=== PATIENT | female | born 2000 | race Caucasian/White ===

== ENCOUNTER 2019-10-21 10:25 | Emergency (ER) | payer BC, OTHER ==
--- NOTE | 2019-10-21 11:29 | XR ---
EXAMINATION TYPE: XR chest 2V DATE OF EXAM: 10/21/2019 COMPARISON: 09/29/2012 TECHNIQUE: PA and lateral views submitted. HISTORY: Cough FINDINGS: There are bilateral perihilar areas of infiltrate. Peripheral left upper lobe area of consolidation n oted. No pleural effusion or pneumothorax. Heart size normal. No overt failure. IMPRESSION: 1. Bilateral perihilar infiltrate correlate for pneumonia.
[2019-10-21] MEDS ORDERED: KETOROLAC 30 MG/ML 1 ML VIAL IM STA (11:33)
[2019-10-21] MEDS ORDERED: DEXAMETHASONE SOD PHOSPHATE 10 MG/ML 1 ML VIAL IM STA (11:33)
[2019-10-21] MEDS ORDERED: AMOXICILLIN 875 MG TAB PO STA (11:33)
[2019-10-21] MEDS ORDERED: IPRATROPIUM-ALBUTEROL 3 ML NEB INHALATION STA (11:34)
[2019-10-21] MEDS ORDERED: AZITHROMYCIN 500 MG TAB PO STA (11:34)
--- NOTE | 2019-10-21 11:37 | ED ---
URI HPI - General Chief Complaint: Upper Respiratory Infection Stated Complaint: Sob/coughing up blood/ear pain Time Seen by Provider: 10/21/19 11:07 Source: patient Mode of arrival: ambulatory Limitations: no limitations - History of Present Illness Initial Comments: 19-year-old female patient presents to the emergency department today for evaluation of cough, shortness of breath, and right ear pain. Patient states that she's been sick for the last week with symptoms. States that she is experiencing sore throat, clear nasal drainage with this. She does have a history of asthma states that she's been having difficulty with breathing. She is reporting persistent painful cough. States that she has been using her albuterol inhaler without relief. She is reporting right ear pain, denies drainage. She reports fever for the first two days of her illness. States she has been taking ibuprofen with little relief of her pain. Patient denies any recent rash, abdominal pain, nausea, vomiting, diarrhea, constipation, back pain, numbness, tingling, dizziness, weakness, hematuria, dysuria, urinary urgency, urinary frequency, headache, visual changes, or any other complaints. - Related Data Home Medications Medication Instructions Recorded Confirmed Cetirizine HCl [Zyrtec] 10 mg PO DAILY PRN 12/01/14 12/01/14 FLUoxetine HCL [PROzac] 60 mg PO DAILY 12/01/14 12/01/14 Generess 1 tab PO DAILY 12/01/14 12/01/14 Montelukast [Singulair] 10 mg PO DAILY 12/01/14 12/01/14 lamoTRIgine [LaMICtal] 25 mg PO DAILY 12/01/14 12/01/14 traZODone HCL [Desyrel] 50 mg PO DAILY 12/01/14 12/01/14 Previous Rx's Medication Instructions Recorded Azithromycin 250 mg PO DAILY 4 Days #4 tab 10/21/19 predniSONE 50 mg PO DAILY #5 tablet 10/21/19 Allergies Allergy/AdvReac Type Severity Reaction Status Date / Time morphine Allergy Cough Verified 10/21/19 10:52 Sulfa (Sulfonamide Allergy Rash/Hives Verified 10/21/19 10:52 Antibiotics) sulfamethoxazole Allergy Anaphylaxis Verified 10/21/19 10:52 [From Bactrim] trimethoprim [From Bactrim] Allergy Anaphylaxis Verified 10/21/19 10:52 Review of Systems ROS Statement: Those systems with pertinent positive or pertinent negative responses have been documented in the HPI. ROS Other: All systems not noted in ROS Statement are negative. Past Medical History Past Medical History: No Reported History Additional Past Medical History / Comment(s): cardiac arrest History of Any Multi-Drug Resistant Organisms: None Reported Past Surgical History: Cholecystectomy Past Psychological History: Anxiety, Depression Smoking Status: Former smoker Past Alcohol Use History: Occasional Past Drug Use History: Marijuana, Prescription Drug Abuse General Exam Limitations: no limitations General appearance: alert, in no apparent distress, other (Physical well- developed, well-nourished adult female patient in no acute distress. Vital signs upon presentation are temperature 97.9F, pulse 97, respirations 18, blood pressure 129/89, pulse ox 98% on room air.) Eye exam: Present: normal appearance, PERRL, EOMI. Absent: scleral icterus, conjunctival injection, periorbital swelling ENT exam: Present: mucous membranes moist. Absent: normal oropharynx (Pharyngeal erythema), TM's normal bilaterally (Right tympanic membrane bulging and erythema) Neck exam: Present: normal inspection, lymphadenopathy (Anterior cervical lymphadenopathy). Absent: tenderness, meningismus Respiratory exam: Present: wheezes (Expiratory wheezing in the posterior lung emery). Absent: normal lung sounds bilaterally, respiratory distress, rales, rhonchi, stridor Cardiovascular Exam: Present: regular rate, normal rhythm, normal heart sounds. Absent: systolic murmur, diastolic murmur, rubs, gallop, clicks GI/Abdominal exam: Present: soft, normal bowel sounds. Absent: distended, tenderness, guarding, rebound, rigid Neurological exam: Present: alert, oriented X3, CN II-XII intact Psychiatric exam: Present: normal affect, normal mood Skin exam: Present: warm, dry, intact, normal color. Absent: rash Course Vital Signs 10/21/19 10/21/19 10/21/19 10:52 12:24 12:32 Temperature 97.9 F Pulse Rate 97 88 96 Respiratory 18 Rate Blood Pressure 129/89 O2 Sat by Pulse 98 Oximetry 10/21/19 13:09 Temperature 98.1 F Pulse Rate 75 Respiratory 17 Rate Blood Pressure 125/76 O2 Sat by Pulse 98 Oximetry Medical Decision Making - Medical Decision Making 19-year-old female patient presents to the emergency department today for evaluation of cough, shortness of breath, and ear pain. Physical examination reveals bulging, erythematous, right tympanic membrane which is consistent with otitis media. Lungs there is coarse expiratory wheezing in the posterior lung emery. Chest x-ray was obtained and showed bilateral pneumonia. Influenza negative. Shows have otitis media. We'll treat with azithromycin to cover for both ear infection and pneumonia. Patient is instructed to follow-up with her primary care physician for recheck in 1-2 days. Return parameters were discussed in detail. Patient verbalizes understanding and agree with this plan. - Lab Data Lab Results 10/21/19 Range/Units 10:59 Influenza Type A RNA Not Detected (Not Detectd) Influenza Type B (PCR) Not Detected (Not Detectd) - Radiology Data Radiology results: report reviewed, image reviewed Two-view x-ray of the chest is obtained. Report is reviewed in its entirety. Impression by Dr. Pérez shows bilateral perihilar infiltrate correlate for pneumonia. Disposition Clinical Impression: Right otitis media, Pneumonia Disposition: HOME SELF-CARE Condition: Good Instructions (If sedation given, give patient instructions): Ear Infection (ED), Pneumonia (ED) Additional Instructions: Take medications as directed. Complete antibiotic and steroid prescription in full. Take Tylenol and Motrin for pain control. Follow up with your primary care physician for recheck in 1-2 days. Return to the emergency department immediately for any new, worsening, or concerning symptoms. Prescriptions: Azithromycin 250 mg PO DAILY 4 Days #4 tab predniSONE 50 mg PO DAILY #5 tablet Is patient prescribed a controlled substance at d/c from ED?: No Referrals: Coral Billingsley MD [Primary Care Provider] - 1-2 days Time of Disposition: 12:50
[2019-10-21 13:10] VITALS: BP 125/76; PULSE 75; RESP 17; TEMP 98.1
== END 2019-10-21 13:09 | disposition home or self-care (01) ==
LOC: EC 10:25
DX: J18.9 Pneumonia, unspecified organism (principal); H66.91 Otitis media, unspecified, right ear; F41.9 Anxiety disorder, unspecified; F32.9 Major depressive disorder, single episode, unspecified; Z79.899 Other long term (current) drug therapy; Z88.1 Allergy status to other antibiotic agents; Z88.2 Allergy status to sulfonamides; Z88.5 Allergy status to narcotic agent; Z87.891 Personal history of nicotine dependence; Z86.74 Personal history of sudden cardiac arrest
CPT/HCPCS: 94640; 87502; 71046; 99285; 96372 ×2; J1100; J1885

== ENCOUNTER 2020-06-07 00:19 | Emergency (ER) | payer OTHER ==
[2020-06-07 00:30] LABS: Glucose,Whole Blood 91 mg/dL (75-99)
--- NOTE | 2020-06-07 00:37 | ED ---
Chest Pain HPI - General Stated Complaint: Chest Pain, 17 wks Time Seen by Provider: 06/07/20 00:25 Source: patient Mode of arrival: wheelchair Limitations: no limitations - History of Present Illness Initial Comments: Carmen is a 20 yo female who presents to the ER today for evaluation of multiple episodes of near syncope and some left sided upper chest pain. Patient reports that about a week ago she had an episode in which she woke up, she hadnt eaten for hours and when she got out of bed she became lightheaded, her vision darkened and she nearly passed out. At that time she sat down and ate and felt much better. A similar event occured again a couple of days later and again resolved after resting in a sitting position. Patient states that today she again became lightheaded upon standing, her vision darkened, she had ringing in her ears and her chest felt tight. She states that her sister and mother both suffer from POTS and have episodes of low blood pressure for which they're advised to have a salty Murphy drink fluids. Patient reports that when she had an episode she ate chips and had Gatorade with minimal relief. Patient reports she's had an uneventful she's been healthy eating and drinking well no vomiting no hyperemesis. - Related Data Home Medications Medication Instructions Recorded Confirmed Cetirizine HCl [Zyrtec] 10 mg PO DAILY PRN 12/01/14 12/01/14 FLUoxetine HCL [PROzac] 60 mg PO DAILY 12/01/14 12/01/14 Generess 1 tab PO DAILY 12/01/14 12/01/14 Montelukast [Singulair] 10 mg PO DAILY 12/01/14 12/01/14 lamoTRIgine [LaMICtal] 25 mg PO DAILY 12/01/14 12/01/14 traZODone HCL [Desyrel] 50 mg PO DAILY 12/01/14 12/01/14 Previous Rx's Medication Instructions Recorded Azithromycin 250 mg PO DAILY 4 Days #4 tab 10/21/19 predniSONE 50 mg PO DAILY #5 tablet 10/21/19 Allergies Allergy/AdvReac Type Severity Reaction Status Date / Time morphine Allergy Cough Verified 06/07/20 00:32 Sulfa (Sulfonamide Allergy Rash/Hives Verified 06/07/20 00:32 Antibiotics) sulfamethoxazole Allergy Anaphylaxis Verified 06/07/20 00:32 [From Bactrim] trimethoprim [From Bactrim] Allergy Anaphylaxis Verified 06/07/20 00:32 Review of Systems ROS Statement: Those systems with pertinent positive or pertinent negative responses have been documented in the HPI. ROS Other: All systems not noted in ROS Statement are negative. EKG Findings - EKG Comments: EKG Findings:: EKG was obtained due to complaint of chest pain, EKG was obtained at oh 41, rate is 77 rhythm is sinus with sinus arrhythmia, normal axis, normal intervals, NH 146, QRS 80, QTC 457 there are no acute ST elevations or depressions no evidence of acute ischemia or infarction Past Medical History Past Medical History: No Reported History Additional Past Medical History / Comment(s): cardiac arrest History of Any Multi-Drug Resistant Organisms: None Reported Past Surgical History: Cholecystectomy Past Psychological History: Anxiety, Depression Smoking Status: Former smoker Past Alcohol Use History: Occasional Past Drug Use History: Marijuana, Prescription Drug Abuse General Exam - General Exam Comments Initial Comments: Physical Exam GENERAL: Patient is well-developed and well-nourished. Patient is nontoxic and well- hydrated and is in no distress. HENT: Normocephalic, Atraumatic. EYES: PERRL, EOMI PULMONARY: Unlabored respirations. No audible rales rhonchi or wheezing was noted. CARDIOVASCULAR: There is a regular rate and rhythm without any murmurs gallops or rubs. ABDOMEN: Soft and nontender with normal bowel sounds. Gravid abdomen palpable to just below the umbilicus SKIN: Skin is clear with no lesions or rashes and otherwise unremarkable. : Deferred NEUROLOGIC: Patient is alert and oriented x3. Moving all extremities spontaneously MUSCULOSKELETAL: Normal extremities with adequate strength and full range of motion. No lower extremity swelling or edema. No calf tenderness. PSYCHIATRIC: Normal psychiatric evaluation. Limitations: no limitations Course Vital Signs 06/07/20 00:22 Temperature 98.3 F Pulse Rate 89 Respiratory 16 Rate Blood Pressure 114/74 O2 Sat by Pulse 98 Oximetry Chest Pain MDM - MDM The patient was seen and evaluated, history is obtained from patient Patient seems to be having episodes of near-syncope which have been worse during her Labs and EKG were obtained and were relatively unremarkable, TSH was mildly elevated Bedside ultrasound report revealed a very active fetus with a heart rate in the 140s Patient received a liter fluid she remained asymptomatic while in the hospital as comfortable with plan for discharge home and outpatient follow-up advised that she needs notify her straight edger on Monday of her abnormal labs Disposition Clinical Impression: Atypical chest pain, Hyperthyroidism affecting in second trimester, Orthostatic lightheadedness Disposition: HOME SELF-CARE Condition: Stable Instructions (If sedation given, give patient instructions): Near Syncope (ED) Is patient prescribed a controlled substance at d/c from ED?: No Referrals: Coral Billingsley MD [Primary Care Provider] - 1-2 days
[2020-06-07 01:28] LABS: Basophils % (A) 0 %; Eosinophils # (A) 0.2 k/uL (0-0.7); Eosinophils % (A) 2 %; HCT 39.5 % (34.0-46.0); HGB 13.1 gm/dL (11.4-16.0); Lymphocytes % (A) 21 %; MCH 27.2 pg (25.0-35.0); MCHC 33.2 g/dL (31.0-37.0); Mean Platelet Volume 7.4; Monocytes # (A) 0.6 k/uL (0-1.0); Monocytes % (A) 4 %; Neutrophils # (A) 10.4 k/uL (1.3-7.7); Neutrophils % (A) 72 %; Platelet Count 287 k/uL (150-450); RBC 4.83 m/uL (3.80-5.40); RDW 13.7 % (11.5-15.5); WBC 14.4 k/uL (3.8-10.6)
[2020-06-07 01:32] LABS: Appearance,Urine Slightly Cloudy (Clear); Bilirubin,Urine Negative (Negative); Color,Urine Yellow; Glucose,Urine (UA) Negative (Negative); Ketones,Urine Negative (Negative); Protein,Urine Negative (Negative); Specific Gravity,Urine 1.005 (1.001-1.035)
[2020-06-07 01:33] LABS: Blood,Urine Negative (Negative); Leukocyte Esterase,Urine Negative (Negative); Nitrite,Urine Negative (Negative); Urobilinogen,Urine <2.0 mg/dL (<2.0)
--- NOTE | 2020-06-07 01:33 | XR ---
EXAMINATION TYPE: XR chest 2V DATE OF EXAM: 06/07/2020 COMPARISON: 10/21/2019 HISTORY: Chest pain TECHNIQUE: 2 views FINDINGS: Heart and mediastinum are normal. Lungs are clear. Diaphragm is normal. Bony thorax appears normal. Pulmonary vascularity is normal. IMPRESSION: Normal chest. There is clearing of the pulmonary infiltrates compared to old exam.
[2020-06-07 01:37] LABS: INR 0.9 (<1.2); Partial Thromboplastin Time 24.4 sec (22.0-30.0); Prothrombin Time 9.3 sec (9.0-12.0)
[2020-06-07 01:39] LABS: ALT 14 U/L (4-34); AST 24 U/L (14-36); African American GFR (CKD) >90 (>60 ml/min/1.73 sqM); Albumin 4.1 g/dL (3.5-5.0); Alkaline Phosphatase 80 U/L (38-126); Anion Gap 11 mmol/L; Blood Urea Nitrogen 5 mg/dL (7-17); Calcium 9.4 mg/dL (8.4-10.2); Carbon Dioxide 24 mmol/L (22-30); Chloride 102 mmol/L (98-107); Glucose 92 mg/dL (74-99); Magnesium 1.9 mg/dL (1.6-2.3); Non-African American GFR(CKD) >90 (>60 ml/min/1.73 sqM); Potassium 3.9 mmol/L (3.5-5.1); Sodium 137 mmol/L (137-145); Total Bilirubin 0.3 mg/dL (0.2-1.3); Total Protein 7.6 g/dL (6.3-8.2)
[2020-06-07] MEDS ORDERED: SODIUM CHLORIDE 0.9% 1,000 ML IV ONE (01:46)
[2020-06-07 02:37] LABS: T4, Free (Free Thyroxine) 1.01 ng/dL (0.78-2.19)
[2020-06-07 02:57] VITALS: BP 121/86; PULSE 74; RESP 18; TEMP 98.1
== END 2020-06-07 02:57 | disposition home or self-care (01) ==
LOC: EC 00:19
DX: O99.282 Endocrine, nutritional and metabolic diseases complicating pregnancy, second trimester (principal); E05.90 Thyrotoxicosis, unspecified without thyrotoxic crisis or storm; O99.342 Other mental disorders complicating pregnancy, second trimester; F41.9 Anxiety disorder, unspecified; F32.9 Major depressive disorder, single episode, unspecified; O26.892 Other specified pregnancy related conditions, second trimester; R42 Dizziness and giddiness; R07.89 Other chest pain; Z3A.17 17 weeks gestation of pregnancy; Z79.899 Other long term (current) drug therapy; Z79.3 Long term (current) use of hormonal contraceptives; Z88.2 Allergy status to sulfonamides; Z88.5 Allergy status to narcotic agent; Z88.1 Allergy status to other antibiotic agents; Z87.891 Personal history of nicotine dependence; Z86.74 Personal history of sudden cardiac arrest
CPT/HCPCS: 36415; 71046; 80053; 81001; 83735; 83880; 84439; 84443; 84484; 85025; 85610; 85730; 93005; 96360; 99285

== ENCOUNTER 2020-06-14 00:04 | Emergency (ER) | payer OTHER ==
[2020-06-14 00:11] VITALS: RESP 18; TEMP 98.1
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
[2020-06-14 00:59] VITALS: BP 104/63; PULSE 71
== END 2020-06-14 00:58 | disposition home or self-care (01) ==
LOC: EC 00:04
DX: Z04.1 Encounter for examination and observation following transport accident (principal); O99.342 Other mental disorders complicating pregnancy, second trimester; F41.9 Anxiety disorder, unspecified; F32.9 Major depressive disorder, single episode, unspecified; Z79.899 Other long term (current) drug therapy; Z79.3 Long term (current) use of hormonal contraceptives; Z88.2 Allergy status to sulfonamides; Z88.1 Allergy status to other antibiotic agents; Z88.5 Allergy status to narcotic agent; Z87.891 Personal history of nicotine dependence; Z3A.17 17 weeks gestation of pregnancy
CPT/HCPCS: 99284

== ENCOUNTER 2020-10-14 18:27 | Outpatient (CLI) | payer OTHER ==
[2020-10-14 19:02] LABS: Appearance,Urine Cloudy (Clear); Bilirubin,Urine Negative (Negative); Blood,Urine Negative (Negative); Color,Urine Yellow; Glucose,Urine (UA) Negative (Negative); Ketones,Urine 2+ (Negative); Leukocyte Esterase,Urine Large (Negative); Mucus,Urine Many /hpf; Nitrite,Urine Negative (Negative); Protein,Urine Trace (Negative); RBC,Urine 4 /hpf (0-5); Specific Gravity,Urine 1.029 (1.001-1.035); Squamous Epithelial Cell,Urine 33 /hpf (0-4); Urobilinogen,Urine <2.0 mg/dL (<2.0); WBC,Urine 14 /hpf (0-5)
[2020-10-14 19:44] VITALS: BP 135/80; PULSE 93; RESP 16; TEMP 97.9
[2020-10-14] MEDS: LACTATED RINGERS 1,000 ML IV SCH ×2 (20:20→21:20)
--- NOTE | 2020-12-05 10:22 | P.MSEPDOC ---
Presenting Problems - Arrival Data Date of Arrival on Unit: 10/14/20 Time of Arrival on Unit: 18:27 Mode of Transport: Wheelchair - Complaint OB-Reason for Admission/Chief Complaint: Possible Onset of Labor, Pain Medical History - Information : 1 Para: 0 Term: 0 : 0 Abortions: Spontaneous or Elective: 0 Number of Living Children: 0 - Gestational Age Gestational Age by HAVEN (wks/days): 35 Weeks and 1 Days - History Complications: Other Review of Systems - Review of Systems Constitutional: No problems Breast: No problems ENT: No problems Cardiovascular: No problems Respiratory: No problems Gastrointestinal: No problems Genitourinary: Urgency, Increased frequency Musculoskeletal: No problems Neurological: No problems Skin: No problems Vital Signs - Temperature Temperature: 97.9 F Temperature Source: Oral - Pulse Right Brachial Pulse Rate: 93 Pulse Assessment Method: Automatic Cuff - Respirations Respiratory Rate: 16 Oxygen Delivery Method: Room Air O2 Sat by Pulse Oximetry: 98 - Blood Pressure Right Arm Blood Pressure: 135/80 Blood Pressure Mean: 98 Blood Pressure Source: Automatic Cuff Medical Screen Scoring (Pre) - Cervical Exam Dilation: 0 cm = 0 Membranes: Intact - Uterine Contractions Frequency: < 36 weeks = 6 Duration: > 40 seconds = 2 Intensity: N/A - Maternal Vital Signs Maternal Temperature: N/A Maternal Blood Pressure: N/A Signs of Preeclampsia: N/A Maternal Respirations: N/A - Maternal Trauma Maternal Trauma: N/A - Assessment - Baby A Baseline FHR: 130 Heart Rate - NICHD Category: Category I (Normal) = 0 NST: Reactive Position: N/A Station: N/A - Total Score - Baby A Total Score - Baby A: 8 - Total Score - Baby B Total Score - Baby B: 8 - Total Score - Baby C Total Score - Baby C: 8 - Level of Risk - Baby A Level of Risk - Baby A: Medium (6-9) - Level of Risk - Baby B Level of Risk - Baby B: Medium (6-9) - Level of Risk - Baby C Level of Risk - Baby C: Medium (6-9) Medical Screen Scoring (Post) - Cervical Exam Dilation: 0 cm = 0 Effacement: Exam Deferred Membranes: Intact - Uterine Contractions Frequency: > 5 minutes apart = 1 Duration: > 40 seconds = 2 - Maternal Vital Signs Maternal Temperature: N/A Maternal Blood Pressure: N/A Signs of Preeclampsia: N/A Maternal Respirations: N/A - Pain Assessment Pain Scale Used: Numeric (1 - 10) Pain Intensity: 0 Pain Management Goal: 2 - Maternal Trauma Maternal Trauma: N/A - Assessment - Baby A Heart Rate: 130 Heart Rate - NICHD Category: Category I (Normal) = 0 NST: Reactive Position: N/A Station: N/A - Total Score Total Score - Baby A: 3 Total Score - Baby B: 3 Total Score - Baby C: 3 - Post Treatment Level of Risk Post Treatment Level of Risk - Baby A: Low (0-5) Post Treatment Level of Risk - Baby B: Low (0-5) Post Treatment Level of Risk - Baby C: Low (0-5) Physician Notification (Post) - Physician Notified Physician Notified Date: 10/14/20 Physician Notified Time: 21:50 Physician/Practitioner Notified:: Naveed Spoke With: Naveed New Order Received: Yes - Notification Comment Comment: RN reported that patient felt better after receiving a 2L bolus of LR. Patient urinated and urine was pale yellow. Patient reported that her pain was zero and she only felt an occasional twitch. Dr. Lucio stated the patient was to be discharged with instructions to keep her follow up appt. Patient in agreement. Disposition - Disposition OB Disposition: Discharge to home Discharge Date: 10/14/20 Discharge Time: 22:00 I agree with the RN Medical Screening Exam: Yes Physician's MSE Comment: I have neither seen nor examined the patient. Case reviewed; plan agreed upon as documented in EMR&OBIX.: Yes Diagnosis: RELATED CONDITIONS, UNSPECIFIED, THIRD TRIMESTER
== END 2020-10-14 22:00 | disposition home or self-care (01) ==
LOC: FBPOP 18:27
PROVIDERS: ATTEND Obstetrics & Gynecology
DX: O26.93 Pregnancy related conditions, unspecified, third trimester (principal); Z3A.35 35 weeks gestation of pregnancy
CPT/HCPCS: 59025; 96360; 96361; 81001; G0463; 99214

== ENCOUNTER 2020-10-24 18:36 | Outpatient (CLI) | payer OTHER ==
[2020-10-24 20:08] VITALS: BP 133/88; PULSE 100; RESP 16; TEMP 97.7
--- NOTE | 2020-12-03 08:03 | P.MSEPDOC ---
Presenting Problems - Arrival Data Date of Arrival on Unit: 10/24/20 Time of Arrival on Unit: 18:36 Mode of Transport: Ambulatory - Complaint OB-Reason for Admission/Chief Complaint: Possible Onset of Labor Comment: pt reporting to triage with c/o contractions starting around 1600 today. Pt. reports,"they started out every 6 minutes, then went to 9 mins apart, and now are about. every 15 minutes apart." Pt rating them at 7/10 pain scale. Medical History - Information : 1 Para: 0 Term: 0 : 0 Abortions: Spontaneous or Elective: 0 Number of Living Children: 0 - Gestational Age Gestational Age by HAVEN (wks/days): 36 Weeks and 4 Days Review of Systems - Review of Systems Constitutional: No problems Breast: No problems ENT: No problems Cardiovascular: No problems Respiratory: No problems Gastrointestinal: No problems Genitourinary: No problems Musculoskeletal: No problems Neurological: No problems Skin: No problems Vital Signs - Temperature Temperature: 97.7 F Temperature Source: Oral - Pulse Right Brachial Pulse Rate: 100 Pulse Assessment Method: Automatic Cuff - Respirations Respiratory Rate: 16 Oxygen Delivery Method: Room Air O2 Sat by Pulse Oximetry: 99 - Blood Pressure Right Arm Blood Pressure: 133/88 Blood Pressure Mean: 103 Blood Pressure Source: Automatic Cuff Medical Screen Scoring (Pre) - Cervical Exam Dilation: 0 cm = 0 Membranes: Intact - Uterine Contractions Frequency: > or = 36 weeks =2 Duration: > 40 seconds = 2 Intensity: N/A - Maternal Vital Signs Maternal Temperature: N/A Signs of Preeclampsia: N/A Maternal Respirations: N/A - Maternal Trauma Maternal Trauma: N/A - Assessment - Baby A Baseline FHR: 125 Heart Rate - NICHD Category: Category I (Normal) = 0 NST: Reactive - Total Score - Baby A Total Score - Baby A: 4 - Total Score - Baby B Total Score - Baby B: 4 - Total Score - Baby C Total Score - Baby C: 4 - Level of Risk - Baby A Level of Risk - Baby A: Low (0-5) - Level of Risk - Baby B Level of Risk - Baby B: Low (0-5) - Level of Risk - Baby C Level of Risk - Baby C: Low (0-5) Physician Notification (Pre) - Physician Notified Physician Notified Date: 10/24/20 Physician Notified Time: 19:53 New Order Received: Yes - Notification Comment Comment: Reported pt s/sx, bp, contractions, fhr and no cervical change after 1 hour. Orders to d/c pt home and follow up as planned Monday10/27/20. Disposition - Disposition OB Disposition: Physician follow up in office, Discharge to home, Written follow up instructions reviewed Discharge Date: 10/24/20 Discharge Time: 19:55 I agree with the RN Medical Screening Exam: Yes Case reviewed; plan agreed upon as documented in EMR&OBIX.: Yes Comments: Patient was neither seen nor examined by me. Diagnosis: FALSE LABOR BEFORE 37 COMPLETED WEEKS OF GEST, THIRD TRI
== END 2020-10-24 19:55 | disposition home or self-care (01) ==
LOC: FBPOP 18:36
PROVIDERS: ATTEND Obstetrics & Gynecology
DX: O47.03 False labor before 37 completed weeks of gestation, third trimester (principal); Z3A.36 36 weeks gestation of pregnancy
CPT/HCPCS: 59025; G0463; 99213

== ENCOUNTER 2020-11-13 20:43 | Outpatient (CLI) | payer OTHER ==
[2020-11-13 21:34] VITALS: BP 133/73; PULSE 100; RESP 18; TEMP 96.2
--- NOTE | 2020-12-05 10:16 | P.MSEPDOC ---
Presenting Problems - Arrival Data Date of Arrival on Unit: 11/13/20 Time of Arrival on Unit: 20:43 Mode of Transport: Ambulatory - Complaint OB-Reason for Admission/Chief Complaint: Decreased Movement Comment: pt. states decrease movement since 1800 today Medical History - Information : 1 Para: 0 Term: 0 : 0 Abortions: Spontaneous or Elective: 0 Number of Living Children: 0 - Gestational Age Gestational Age by HAVEN (wks/days): 39 Weeks and 3 Days Review of Systems - Review of Systems Constitutional: No problems Breast: No problems ENT: No problems Cardiovascular: No problems Respiratory: No problems Gastrointestinal: No problems Genitourinary: No problems Musculoskeletal: No problems Neurological: No problems Skin: No problems Vital Signs - Temperature Temperature: 96.2 F Temperature Source: Temporal Artery Scan - Pulse Pulse Oximetery Pulse Rate: 100 Pulse Assessment Method: Automatic Cuff - Respirations Respiratory Rate: 18 Oxygen Delivery Method: Room Air O2 Sat by Pulse Oximetry: 97 - Blood Pressure Right Arm Blood Pressure: 133/73 Blood Pressure Mean: 93 Blood Pressure Source: Automatic Cuff Medical Screen Scoring (Pre) - Cervical Exam Dilation: 0 cm = 0 Membranes: Intact - Uterine Contractions Frequency: > 5 minutes apart = 1 - Maternal Vital Signs Maternal Temperature: N/A Maternal Blood Pressure: N/A Signs of Preeclampsia: N/A Maternal Respirations: N/A - Maternal Trauma Maternal Trauma: N/A - Assessment - Baby A Baseline FHR: 135 Heart Rate - NICHD Category: Category I (Normal) = 0 NST: Reactive Position: N/A Station: N/A - Total Score - Baby A Total Score - Baby A: 1 - Total Score - Baby B Total Score - Baby B: 1 - Total Score - Baby C Total Score - Baby C: 1 - Level of Risk - Baby A Level of Risk - Baby A: Low (0-5) - Level of Risk - Baby B Level of Risk - Baby B: Low (0-5) - Level of Risk - Baby C Level of Risk - Baby C: Low (0-5) Physician Notification (Pre) - Physician Notified Physician Notified Date: 11/13/20 Physician Notified Time: 21:08 - Notification Comment Comment: Reactive NST, pt. states feeling baby move since present to triage,order to discharge patient home Disposition - Disposition OB Disposition: Discharge to home Discharge Date: 11/13/20 Discharge Time: 21:28 I agree with the RN Medical Screening Exam: Yes Physician's MSE Comment: I have neither seen nor examined the patient. Case reviewed; plan agreed upon as documented in EMR&OBIX.: Yes Diagnosis: RELATED CONDITIONS, UNSPECIFIED, THIRD TRIMESTER
== END 2020-11-13 21:28 | disposition home or self-care (01) ==
LOC: FBPOP 20:43
PROVIDERS: ATTEND Obstetrics & Gynecology
DX: O26.93 Pregnancy related conditions, unspecified, third trimester (principal); Z3A.39 39 weeks gestation of pregnancy
CPT/HCPCS: 59025; G0463; 99213

== ENCOUNTER 2020-11-22 10:12 | Outpatient (CLI) | payer OTHER ==
[2020-11-22 10:49] VITALS: BP 146/108; PULSE 89; RESP 17; TEMP 98.1
[2020-11-22 11:31] LABS: Basophils % (A) 0 %; Eosinophils # (A) 0.1 k/uL (0-0.7); Eosinophils % (A) 1 %; HCT 34.3 % (34.0-46.0); HGB 11.5 gm/dL (11.4-16.0); Lymphocytes # (A) 1.8 k/uL (1.0-4.8); Lymphocytes % (A) 16 %; MCH 25.9 pg (25.0-35.0); MCHC 33.6 g/dL (31.0-37.0); MCV 77.2 fL (80.0-100.0); Mean Platelet Volume 8.2; Microcytosis Slight; Monocytes # (A) 0.3 k/uL (0-1.0); Monocytes % (A) 3 %; Neutrophils # (A) 8.8 k/uL (1.3-7.7); Neutrophils % (A) 79 %; Platelet Count 223 k/uL (150-450); RBC 4.45 m/uL (3.80-5.40); RDW 15.8 % (11.5-15.5); WBC 11.1 k/uL (3.8-10.6)
[2020-11-22 11:47] LABS: Uric Acid 5.9 mg/dL (3.7-7.4)
--- NOTE | 2020-12-02 08:02 | P.MSEPDOC ---
Presenting Problems - Arrival Data Date of Arrival on Unit: 11/22/20 Time of Arrival on Unit: 10:12 Mode of Transport: Ambulatory - Complaint OB-Reason for Admission/Chief Complaint: Other Comment: pt here from home with c/o intermittent contractions that she is having to. breathe through, pt reports + fm, denies lof/vb, upon arrival to triage pt had a bp of. 146/108, pt reports having elevated pressures in office last week but denies having. blood work done, reports discomfort on right side of abd that goes from pelvis up to rib. cage, denies matias/blurred vision, denies complication with Medical History - Information : 1 Para: 0 Term: 0 : 0 Abortions: Spontaneous or Elective: 0 Number of Living Children: 0 - Gestational Age Gestational Age by HAVEN (wks/days): 40 Weeks and 5 Days - History Complications: GBS+ Review of Systems - Review of Systems Constitutional: No problems Breast: No problems ENT: No problems Cardiovascular: No problems Respiratory: No problems Gastrointestinal: No problems Genitourinary: No problems Musculoskeletal: No problems Neurological: No problems Skin: No problems Vital Signs - Temperature Temperature: 98.1 F Temperature Source: Oral - Pulse Right Brachial Pulse Rate: 89 Pulse Assessment Method: Automatic Cuff - Respirations Respiratory Rate: 17 Oxygen Delivery Method: Room Air O2 Sat by Pulse Oximetry: 98 - Blood Pressure Right Arm Blood Pressure: 146/108 Blood Pressure Mean: 120 Blood Pressure Source: Automatic Cuff - Comment Vital Signs Comment: blood pressure recheck 139/88, 121/73 Medical Screen Scoring (Pre) - Cervical Exam Dilation: 0 cm = 0 Membranes: Intact - Uterine Contractions Frequency: > 5 minutes apart = 1 Duration: > 40 seconds = 2 Intensity: N/A - Maternal Vital Signs Maternal Temperature: N/A Maternal Blood Pressure: N/A Signs of Preeclampsia: N/A Maternal Respirations: N/A - Maternal Trauma Maternal Trauma: N/A - Assessment - Baby A Baseline FHR: 135 Heart Rate - NICHD Category: Category I (Normal) = 0 NST: Reactive Position: N/A Station: N/A - Total Score - Baby A Total Score - Baby A: 3 - Total Score - Baby B Total Score - Baby B: 3 - Total Score - Baby C Total Score - Baby C: 3 - Level of Risk - Baby A Level of Risk - Baby A: Low (0-5) - Level of Risk - Baby B Level of Risk - Baby B: Low (0-5) - Level of Risk - Baby C Level of Risk - Baby C: Low (0-5) Physician Notification (Pre) - Physician Notified Physician Notified Date: 11/22/20 Physician Notified Time: 10:30 New Order Received: Yes (lab work) - Notification Comment Comment: will cont to observe pt in triage, orders for lab work placed Disposition - Disposition OB Disposition: Observe, Triage Discharge Date: 11/22/20 Discharge Time: 11:54 I agree with the RN Medical Screening Exam: Yes Case reviewed; plan agreed upon as documented in EMR&OBIX.: Yes Comments: Patient was neither seen nor examined by me Diagnosis: FALSE LABOR AT OR AFTER 37 COMPLETED WEEKS OF GESTATION
== END 2020-11-22 11:55 | disposition home or self-care (01) ==
LOC: FBPOP 10:12
PROVIDERS: ATTEND Obstetrics & Gynecology
DX: O47.1 False labor at or after 37 completed weeks of gestation (principal); Z3A.40 40 weeks gestation of pregnancy
CPT/HCPCS: 59025; 84450; 84460; 84550; 85025; G0463; 99215

== ENCOUNTER 2020-11-25 06:00 | Inpatient (IN) | payer OTHER ==
[2020-11-25] MEDS ORDERED: CARBOPROST TROMETHAMINE 250 MCG/ML 1 ML AMP IM PRN (06:26)
[2020-11-25] MEDS ORDERED: OXYTOCIN 10 UNIT/ML 1 ML VIAL IM PRN (06:26)
[2020-11-25] MEDS ORDERED: LIDOCAINE 0.5% (PF) 5 MG/ML (50 ML SDV) SQ PRN (06:26)
[2020-11-25] MEDS ORDERED: TERBUTALINE 1 MG/ML VIAL SQ PRN (06:26)
[2020-11-25] MEDS ORDERED: METHYLERGONOVINE 0.2 MG/ML 1 ML AMP IM PRN (06:26)
[2020-11-25] MEDS ORDERED: OXYTOCIN 30 UNITS/500 ML NS 30 UNIT in SALINE 1 500ML.BAG IV SCH (06:30)
[2020-11-25 06:37] LABS: Anisocytosis Slight; Basophils # (A) 0.1 k/uL (0-0.2); Basophils % (A) 1 %; Eosinophils # (A) 0.2 k/uL (0-0.7); Eosinophils % (A) 2 %; HGB 12.6 gm/dL (11.4-16.0); Hypochromasia Slight; Lymphocytes # (A) 2.7 k/uL (1.0-4.8); Lymphocytes % (A) 26 %; MCHC 33.3 g/dL (31.0-37.0); MCV 78.2 fL (80.0-100.0); Mean Platelet Volume 8.4; Microcytosis Slight; Monocytes # (A) 0.3 k/uL (0-1.0); Monocytes % (A) 3 %; Neutrophils # (A) 6.8 k/uL (1.3-7.7); Neutrophils % (A) 66 %; Platelet Count 255 k/uL (150-450); Poikilocytosis Slight; RBC 4.85 m/uL (3.80-5.40); WBC 10.2 k/uL (3.8-10.6)
[2020-11-25] MEDS: LACTATED RINGERS 1,000 ML IV SCH ×2 (06:54→11:09)
[2020-11-25] MEDS ORDERED: PENICILLIN G POTASSIUM 5,000,000 UNIT in DEXTROSE 5% IN WATER 100 ML IVPB ONE ×2 (07:00)
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
[2020-11-25] MEDS ORDERED: ROPIVACAINE 100 MG, fentaNYL (PF) 200 MCG in SODIUM CHLORIDE 0.9% 76 ML EPIDURAL ONE (10:13)
[2020-11-25] MEDS: PENICILLIN G POTASSIUM 2,500,000 UNIT in DEXTROSE 5% IN WATER 100 ML IVPB SCH ×4 (11:09→15:18)
[2020-11-25] MEDS ORDERED: HYDROCORTISONE 2.5% RECTAL CREAM 30 GM TUBE RECTAL PRN (17:00)
[2020-11-25] MEDS ORDERED: diphenhydrAMINE 50 MG CAP PO PRN (17:00)
[2020-11-25] MEDS ORDERED: diphenhydrAMINE 25 MG CAP PO PRN (17:00)
[2020-11-25] MEDS ORDERED: LANOLIN CREAM 5 GM TUBE TOPICAL PRN (17:00)
[2020-11-25] MEDS ORDERED: ZOLPIDEM 5 MG TAB PO PRN (17:00)
[2020-11-25] MEDS ORDERED: diphenhydrAMINE ELIXIR 25 MG/10 ML CUP PO PRN (17:00)
[2020-11-25] MEDS ORDERED: SIMETHICONE 80 MG CHEWABLE PO PRN (17:00)
[2020-11-25] MEDS ORDERED: diphenhydrAMINE 50 MG/ML 1 ML VIAL IVP PRN ×2 (17:00)
[2020-11-25] MEDS ORDERED: BENZOCAINE/MENTHOL SPRAY 1 GM/SPRAY AEROSOL TOPICAL PRN (17:00)
--- NOTE | 2020-11-25 17:00 | P.PROBDLV ---
Vaginal Delivery Note - . Vaginal Delivery Note: This is a 20-year-old female 1 para 0 EDC 11/17/2020 at 41 and one sevenths weeks' gestation. Patient presented this morning for induction for postdates . Fetus is been active throughout the . She denied vaginal bleeding or fluid leakage but did report spontaneous mild contractions. Group B strep cultures positive, blood type A+, rubella status immune. Please see dictated history and physical for details. Artificial amniorrhexis revealed clear fluid. Oxytocin was started and titrated per hospital protocol. Patient requested and received an epidural. She progressed well through the first stage of labor and became completely dilated at 1552 hours. Perineal body was prepped and draped in usual sterile fashion at this time. Patient received 3 doses of penicillin G per our protocol. Good maternal expulsive efforts were noted. Ultimately the perineal body was prepped and draped in usual sterile fashion. Infant's head crowned occiput anterior and restituted accordingly. There was a tight nuchal cord 1 that was reduced. The left or anterior shoulder then gently and quickly delivered from underneath the pubic symphysis at which time the oropharynx, nasopharynx, and external nares were bulb suctioned on the perineal body. Patient was officially delivered of a liveborn female at 1638 hours. Umbilical cord was doubly clamped and ligated, she was handed to waiting nurses for evaluation where scores of 8 and 9 at one and 5 minutes respectively were given. Infant is delivered spontaneously, it was inspected and noted to be intact with trivascular cord at 1640 hrs. Uterus is then massaged. Careful inspection of the cervix, vagina, perineum, periurethral, and perirectal areas revealed a right and left superficial interlabial laceration, both first-degree. They were both repaired with 3-0 repeat suture for excellent reapproximation. Total estimated blood loss 300 mL's. All sponge needle and enhancement counts are correct. Placenta is sent to pathology for evaluation. weighed 7 lbs. 9 oz. or 3435 g.
[2020-11-25] MEDS: IBUPROFEN 600 MG TAB PO PRN (17:21)
[2020-11-25] MEDS: SENNOSIDES-DOCUSATE SODIUM 1 EACH TAB PO SCH (20:02)
[2020-11-25] MEDS: ACETAMINOPHEN TAB 325 MG TAB PO PRN (20:07)
[2020-11-26] MEDS: IBUPROFEN 600 MG TAB PO PRN ×2 (05:51→17:30)
[2020-11-26] MEDS: PENICILLIN G POTASSIUM 2,500,000 UNIT in DEXTROSE 5% IN WATER 100 ML IVPB SCH ×2 (07:21)
[2020-11-26] MEDS: LACTATED RINGERS 1,000 ML IV SCH (07:22)
--- NOTE | 2020-11-26 07:50 | P.DS ---
Providers Date of admission: 11/25/20 06:05 Expected date of discharge: 11/26/20 Attending physician: Maryanne Mott Primary care physician: Stated None Hospital Course: This is a 20-year-old white female 1 para 0 EDC 11/17/2020 at 41 and one sevenths weeks' gestation who presented for induction for postdates . She did present with spontaneous mild to moderate uterine contractions in early latent phase labor. is remarkable for positive group B strep cultures, blood type A+, rubella status immune. Please see dictated history and physical for details. Patient underwent a vaginal delivery of a liveborn female with scores of 8 and 9 at one and 5 minutes respectively. There were 2 small first- degree labial lacerations repaired easily, estimated blood loss 300 mL, and a tight nuchal cord 1. Baby weighed 7 lbs. 9 oz. or 3435 g. We see dictated delivery note for details. This morning the patient is doing well. She is voiding, ambulate in, passing flatus without difficulty. Vital signs are stable and she is afebrile. Fundus is firm and in the midline, symmetric and 18 week size. Extremities are negative for edema. Chest is clear in all emery. Breast-feeding is going well. There is minimal to moderate lochia rubra noted, and good pain control. Patient is judged to be in good condition for discharge home. She will follow-up with me in the office in 6 weeks. I have reminded her no intercourse, tampons or douching. She will use [id number] Advil or Aleve, or Motrin products as needed for pain. She will call with any fevers shakes or chills, foul smelling or copious lochia, with the passage of large blood clots, with any pain not alleviated by [id number] products, or indeed with any concerns. We have briefly discussed contraceptive options and we will discuss this further in the office. Assessment: Doing well day #1 Patient Condition at Discharge: Good Plan - Discharge Summary Discharge Rx Participant: No New Discharge Prescriptions: No Action Pnv No.95/Ferrous Fum/Folic AC [ Multivitamin Tablet] 1 tab PO DAILY Omeprazole Magnesium [PriLOSEC OTC] 20 mg PO DAILY Beclomethasone Dip 80 Mcg/Puff [Qvar 80 mcg] 1 puff INHALATION PRN PRN Reason: Shortness Of Breath Discharge Medication List Pnv No.95/Ferrous Fum/Folic AC [ Multivitamin Tablet] 1 tab PO DAILY 09/15/20 [History] Omeprazole Magnesium [PriLOSEC OTC] 20 mg PO DAILY 10/14/20 [History] Beclomethasone Dip 80 Mcg/Puff [Qvar 80 mcg] 1 puff INHALATION PRN 11/22/20 [History] Follow up Appointment(s)/Referral(s): Maryanne Mott MD [STAFF PHYSICIAN] - 6 Weeks Discharge Disposition: HOME SELF-CARE
[2020-11-26] MEDS: SENNOSIDES-DOCUSATE SODIUM 1 EACH TAB PO SCH ×2 (09:46→20:36)
[2020-11-26] MEDS: ACETAMINOPHEN TAB 325 MG TAB PO PRN (20:35)
[2020-11-27] MEDS: IBUPROFEN 600 MG TAB PO PRN (03:55)
[2020-11-27 07:43] VITALS: BP 132/89; PULSE 78; RESP 16; TEMP 97.5
[2020-11-27] MEDS: ACETAMINOPHEN TAB 325 MG TAB PO PRN (08:54)
[2020-11-27] MEDS: SENNOSIDES-DOCUSATE SODIUM 1 EACH TAB PO SCH (08:54)
== END 2020-11-27 13:26 | disposition home or self-care (01) | DRG 807 ==
LOC: 4FBP 06:05
PROVIDERS: ADMIT Obstetrics & Gynecology; ATTEND Obstetrics & Gynecology
PROC: 00HU33Z Insertion of Infusion Device into Spinal Canal, Percutaneous Approach (ICD-10-PCS; principal; 2020-11-25)
PROC: 3E0R3BZ Introduction of Anesthetic Agent into Spinal Canal, Percutaneous Approach (ICD-10-PCS; principal; 2020-11-25)
PROC: 10E0XZZ Delivery of Products of Conception, External Approach (ICD-10-PCS; principal; 2020-11-25)
PROC: 0HQ9XZZ Repair Perineum Skin, External Approach (ICD-10-PCS; principal; 2020-11-25)
DX: O98.82 Other maternal infectious and parasitic diseases complicating childbirth (principal); Z37.0 Single live birth; O69.1XX0 Labor and delivery complicated by cord around neck, with compression, not applicable or unspecified; O70.0 First degree perineal laceration during delivery; J45.909 Unspecified asthma, uncomplicated; F31.9 Bipolar disorder, unspecified; F41.9 Anxiety disorder, unspecified; H91.90 Unspecified hearing loss, unspecified ear; O71.82 Other specified trauma to perineum and vulva; O77.0 Labor and delivery complicated by meconium in amniotic fluid; B95.1 Streptococcus, group B, as the cause of diseases classified elsewhere; O99.344 Other mental disorders complicating childbirth; O99.52 Diseases of the respiratory system complicating childbirth; Z82.49 Family history of ischemic heart disease and other diseases of the circulatory system; Z83.3 Family history of diabetes mellitus; Z86.59 Personal history of other mental and behavioral disorders; Z86.74 Personal history of sudden cardiac arrest; Z88.1 Allergy status to other antibiotic agents; Z91.09 Other allergy status, other than to drugs and biological substances; Z86.14 Personal history of Methicillin resistant Staphylococcus aureus infection; Z90.49 Acquired absence of other specified parts of digestive tract
CPT/HCPCS: 85025; 86850; 86900; 86901; 88307

== ENCOUNTER 2021-03-29 19:24 | Emergency (ER) | payer OTHER ==
[2021-03-29 20:31] VITALS: RESP 20
--- NOTE | 2021-03-29 20:42 | ED ---
Upper Extremity HPI - General Chief Complaint: Extremity Injury, Upper Stated Complaint: RT hand injury Time Seen by Provider: 03/29/21 20:29 Source: patient Mode of arrival: ambulatory Limitations: no limitations - History of Present Illness Initial Comments: Patient is a 21-year-old female presenting to the emergency Department with complaints of right wrist pain. Patient states that last year she had a ligament injury to her wrist, healed appropriately. She states about 3 weeks ago she fell forward landing on both her hands. States she felt a pop in her right wrist. She states that after the first few days her pain seemed to go away. She states over the last few days the pain is increased, she states her checkering machine adjuster strength is decreased and she has a lot of pain when she is moving her right thumb. She denies any other previous injuries to her right wrist. She denies any other injuries from the fall. She has no further complaints. - Related Data Home Medications Medication Instructions Recorded Confirmed Pnv No.95/Ferrous Fum/Folic AC 1 tab PO DAILY 09/15/20 11/25/20 [ Multivitamin Tablet] Omeprazole Magnesium [PriLOSEC OTC] 20 mg PO DAILY 10/14/20 11/25/20 Beclomethasone Dip 80 Mcg/Puff 1 puff INHALATION PRN 11/22/20 [Qvar 80 mcg] Allergies Allergy/AdvReac Type Severity Reaction Status Date / Time morphine Allergy Cough Verified 03/29/21 20:30 Sulfa (Sulfonamide Allergy Rash/Hives Verified 03/29/21 20:30 Antibiotics) sulfamethoxazole Allergy Anaphylaxis Verified 03/29/21 20:30 [From Bactrim] trimethoprim [From Bactrim] Allergy Anaphylaxis Verified 03/29/21 20:30 Review of Systems ROS Statement: Those systems with pertinent positive or pertinent negative responses have been documented in the HPI. ROS Other: All systems not noted in ROS Statement are negative. Past Medical History Past Medical History: Asthma Additional Past Medical History / Comment(s): cardiac arrest during surgery. adhd. anemia History of Any Multi-Drug Resistant Organisms: MRSA Date of last positivie culture/infection: 10/23/2012 MDRO Source:: buttocks Past Surgical History: Cholecystectomy Past Anesthesia/Blood Transfusion Reactions: No Reported Reaction Past Psychological History: Anxiety, Depression Smoking Status: Never smoker Past Alcohol Use History: None Reported Past Drug Use History: None Reported General Exam - General Exam Comments Initial Comments: GENERAL: Patient is well-developed and well-nourished. Patient is nontoxic and in no acute distress. HEAD: Atraumatic, normocephalic. EYES: Pupils equal round and reactive to light, extraocular movements intact, sclera anicteric, conjunctiva are normal. Eyelids were unremarkable. ENT: Nares patent, oropharynx clear without exudates. Moist mucous membranes. NECK: Normal range of motion, supple without lymphadenopathy or JVD. LUNGS: Unlabored respirations. Breath sounds clear to auscultation bilaterally and equal. No wheezes rales or rhonchi. HEART: Regular rate and rhythm without murmurs, rubs or gallops. ABDOMEN: Soft, nontender, normoactive bowel sounds. No guarding, no rebound. No masses appreciated. : Deferred MUSCULOSKELETAL: Patient has pain with palpation of the right wrist, near the head of the radius and snuffbox area. She has decreased checkering machine adjuster strength compared to left hand, she is neurovascular intact. No clubbing or cyanosis. NEUROLOGICAL: Patient is alert and oriented x 3. Normal speech, normal gait. PSYCH: Normal mood, normal affect. SKIN: Warm, Dry, normal turgor, no rashes or lesions noted. Limitations: no limitations Course Vital Signs 03/29/21 20:28 Temperature 97.7 F Pulse Rate 72 Respiratory 20 Rate Blood Pressure 136/96 O2 Sat by Pulse 97 Oximetry Medical Decision Making - Medical Decision Making Patient is a 21-year-old female here for right wrist pain for the past 3 weeks, increased over the past 3 days. Her only previous injury was a ligament injury last year. No previous fractures or surgeries. XR today reveal no acute fractures dislocations in the right wrist. Patient did come in wearing a splint with thumb support. We discussed her splint options as she is tender over the scaphoid, even thoug it has been 3 wks since her fall, and she wishes to go with her splint. She will follow up with orthopedics. She is stable for discharge and she is in agreement with this plan of care. Case discussed Dr. Desir. Disposition Clinical Impression: Right wrist pain Disposition: HOME SELF-CARE Condition: Stable Instructions (If sedation given, give patient instructions): Wrist Injury (ED) Additional Instructions: Please return to the Emergency Department if symptoms worsen or any other concerns. Recommended keeping splint in place until follow-up with orthopedics. May apply ice to the area, Tylenol and Motrin for any discomfort. Is patient prescribed a controlled substance at d/c from ED?: No Referrals: Coral Billingsley MD [Primary Care Provider] - 1-2 days Noé Flores DO [Doctor of Osteopathic Medicine] - 1-2 days Time of Disposition: 21:49
--- NOTE | 2021-03-29 21:31 | XR ---
EXAMINATION TYPE: XR wrist complete RT DATE OF EXAM: 03/29/2021 COMPARISON: NONE HISTORY: Pain TECHNIQUE: 4 views FINDINGS: Carpal bones are intact. I see no fracture nor dislocation. Joint spaces are normal. IMPRESSION: Negative right wrist exam.
[2021-03-29 22:20] VITALS: BP 133/79; PULSE 77; TEMP 98
== END 2021-03-29 22:20 | disposition home or self-care (01) ==
LOC: EC 19:24
DX: M25.531 Pain in right wrist (principal); J45.909 Unspecified asthma, uncomplicated; Z86.74 Personal history of sudden cardiac arrest; Z79.51 Long term (current) use of inhaled steroids
CPT/HCPCS: 99283

== ENCOUNTER 2022-10-14 12:50 | Emergency (ER) | payer OTHER ==
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
--- NOTE | 2022-10-14 13:29 | XR ---
EXAMINATION TYPE: XR knee 4V LT DATE OF EXAM: 10/14/2022 COMPARISON: NONE HISTORY: Pain TECHNIQUE: Three views are submitted. FINDINGS: Joint spaces are preserved. Osseous structures are intact. No acute fracture seen. IMPRESSION: 1. No acute fracture or dislocation.
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
[2022-10-14 14:34] VITALS: BP 130/89; PULSE 90; RESP 16; TEMP 98.1
== END 2022-10-14 14:34 | disposition home or self-care (01) ==
LOC: EC 12:50 → SUPCPDRO 12:50 → EC 14:34
DX: S62.001A Unspecified fracture of navicular [scaphoid] bone of right wrist, initial encounter for closed fracture (principal); S63.501A Unspecified sprain of right wrist, initial encounter; S20.211A Contusion of right front wall of thorax, initial encounter; S80.02XA Contusion of left knee, initial encounter; S80.212A Abrasion, left knee, initial encounter; M94.0 Chondrocostal junction syndrome [Tietze]; J45.909 Unspecified asthma, uncomplicated; F41.9 Anxiety disorder, unspecified; F31.9 Bipolar disorder, unspecified; F12.90 Cannabis use, unspecified, uncomplicated; Z88.2 Allergy status to sulfonamides; Z88.6 Allergy status to analgesic agent; V49.40XA Driver injured in collision with unspecified motor vehicles in traffic accident, initial encounter
CPT/HCPCS: 71046; 99284

== ENCOUNTER 2023-03-30 23:33 | Emergency (ER) | payer OTHER ==
[2023-03-30 23:45] VITALS: RESP 18; TEMP 98.2
[2023-03-30] MEDS ORDERED: SODIUM CHLORIDE 0.9% 1,000 ML IV STA (23:54)
[2023-03-30] MEDS ORDERED: DEXAMETHASONE SOD PHOSPHATE 10 MG/ML 1 ML VIAL IVP STA (23:54)
[2023-03-31 00:23] LABS: Potassium 4.1 mmol/L (3.5-5.1)
[2023-03-31 00:25] LABS: African American GFR (CKD) >90 (>60 ml/min/1.73 sqM); Anion Gap 14 mmol/L; Blood Urea Nitrogen 6 mg/dL (7-17); Carbon Dioxide 23 mmol/L (22-30); Chloride 103 mmol/L (98-107); Glucose 90 mg/dL (74-99); Non-African American GFR(CKD) >90 (>60 ml/min/1.73 sqM); Sodium 140 mmol/L (137-145)
--- NOTE | 2023-03-31 00:25 | ED ---
General Adult HPI - General Chief complaint: ENT Stated complaint: Mass Lymph nodes, Toothpain Time Seen by Provider: 03/30/23 23:47 Source: patient, RN notes reviewed, old records reviewed Mode of arrival: ambulatory Limitations: no limitations - History of Present Illness Initial comments: Patient is a 23-year-old female who presents emergency Department complaining of right upper wisdom tooth pain, gumline pain as well as a swollen right-sided lymph node and pain when swallowing. States symptoms have been ongoing for a few days butget worse today. Presents here for evaluation at this time. Was concerned that her throat swell up. Denies any difficulty in breathing. States it hurts to swallow. Denies any fevers. Denies any chest pain, shortness breath, abdominal pain, nausea, vomiting. Has no known drainage. Presents for further evaluation at this time.Denies any tongue swelling or floor of the mouth swelling. - Related Data Home Medications Medication Instructions Recorded Confirmed Pnv No.95/Ferrous Fum/Folic AC 1 tab PO DAILY 09/15/20 11/25/20 [ Multivitamin Tablet] Omeprazole Magnesium [PriLOSEC OTC] 20 mg PO DAILY 10/14/20 11/25/20 Beclomethasone Dip 80 Mcg/Puff 1 puff INHALATION PRN 11/22/20 [Qvar 80 mcg] Previous Rx's Medication Instructions Recorded Amoxic-Pot Clav 875-125Mg 1 tab PO BID 7 Days #14 tab 03/31/23 [Augmentin 875-125] Allergies Allergy/AdvReac Type Severity Reaction Status Date / Time morphine Allergy Cough Verified 03/30/23 23:46 Sulfa (Sulfonamide Allergy Rash/Hives Verified 03/30/23 23:46 Antibiotics) sulfamethoxazole Allergy Anaphylaxis Verified 03/30/23 23:46 [From Bactrim] trimethoprim [From Bactrim] Allergy Anaphylaxis Verified 03/30/23 23:46 Review of Systems ROS Statement: Those systems with pertinent positive or pertinent negative responses have been documented in the HPI. Review of Systems: CONST: Denies fever EYES: Denies blurry vision ENT: Endorses cheek pain, pain with swallowing C/V: Denies Chest pain RESP: Denies shortness of breath GI: Denies abdominal pain : Denies dysuria SKIN: Denies rash. MSK: Denies joint pain. NEURO: Denies headache ROS Other: All systems not noted in ROS Statement are negative. Past Medical History Past Medical History: Asthma Additional Past Medical History / Comment(s): cardiac arrest during surgery. adhd. anemia History of Any Multi-Drug Resistant Organisms: MRSA Date of last positivie culture/infection: 10/23/2012 MDRO Source:: buttocks Past Surgical History: Cholecystectomy Past Anesthesia/Blood Transfusion Reactions: No Reported Reaction Past Psychological History: Anxiety, Bipolar, Depression, PTSD Smoking Status: Vaper Past Alcohol Use History: None Reported Past Drug Use History: Marijuana General Exam - General Exam Comments Initial Comments: General: Appears in no acute distress. HEAD: Normal with no signs of head trauma. EYES: PERRLA, EOMI, conjunctiva normal, no discharge. Pupils are 2 mm and equal bilaterally. ENT: Hearing grossly intact. Posterior oropharynx within normal limits. Uvula is midline. No swelling or edema of the floor the mouth. Patient does have some tenderness and swelling located in the gumline on the right upper posterior aspect near where he was sent tooth may be passing through. Patient also has a palpable lymph node in the right submandibular chain. No obvious fluctuance palpated. No obvious skin changes. No stridor. Tolerating secretions. RESPIRATORY: Clear breath sounds bilaterally. No wheezes, rales, or rhonchi. C/V: Regular rate and rhythm. S1 and S2 auscultated, peripheral pulses 2+ and intact throughout ABD: Abd is soft, nontender, nondistended EXT: No obvious deformity SKIN: No rashes or lesions observed on exposed skin. NEURO: Alert and oriented 4. No focal sensory or strength deficits. Limitations: no limitations Course Vital Signs 03/30/23 03/30/23 03/31/23 23:41 23:59 00:00 Temperature 98.2 F Pulse Rate 84 Respiratory 18 Rate Blood Pressure 124/85 130/60 O2 Sat by Pulse 97 99 98 Oximetry 03/31/23 03/31/23 03/31/23 01:51 02:00 03:32 Temperature Pulse Rate 70 79 Respiratory 18 Rate Blood Pressure 113/73 113/73 O2 Sat by Pulse 99 98 Oximetry Medical Decision Making - Medical Decision Making Was pt. sent in by a medical professional or institution (, PA, CLASS B TRUCK DRIVER, urgent care, hospital, or jail...) When possible be specific @ -No Did you speak to anyone other than the patient for history (EMS, parent, family, police, friend...)? What history was obtained from this source @ -No Did you review nursing and triage notes (agree or disagree)? Why? @ -I reviewed and agree with nursing and triage notes Were old charts reviewed (outside hosp., previous admission, EMS record, old EKG, old radiological studies, urgent care reports/EKG's, jail records)? Report findings @ -No old charts were reviewed Differential Diagnosis (chest pain, altered mental status, abdominal pain women, abdominal pain men, vaginal bleeding, weakness, fever, dyspnea, syncope, headache, dizziness, GI bleed, back pain, seizure, CVA, palpatations, mental health, musculoskeletal)? @ -Tooth abscess, dental abscess, sinusitis, lymphadenopathy, peritonsillar abscess, throat abscess. This list is not all inclusive. EKG interpreted by me (3pts min.). @ -None done X-rays interpreted by me (1pt min.). @ -None done CT interpreted by me (1pt min.). @ -CT imaging reveals bilateral cervical lymphadenopathy with no other acute process. U/S interpreted by me (1pt. min.). @ -None done What testing was considered but not performed or refused? (CT, X-rays, U/S, labs)? Why? @ -None What meds were considered but not given or refused? Why? @ -None Did you discuss the management of the patient with other professionals (professionals i.e. , PA, CLASS B TRUCK DRIVER, lab, RT, psych nurse, child welfare social worker, rubber and plastics worker, teacher, enforcement officer, case liner)? Give summary @ -No Was smoking cessation discussed for >3mins.? @ -No Was critical care preformed (if so, how long)? @ -No Were there social determinants of health that impacted care today? How? (Homelessness, low income, unemployed, alcoholism, drug addiction, transportation, low edu. Level, literacy, decrease access to med. care, [facility], rehab)? @ -No Was there de-escalation of care discussed even if they declined (Discuss DNR or withdrawal of care, Hospice)? DNR status @ -No What co-morbidities impacted this encounter? (DM, HTN, Smoking, COPD, CAD, Cancer, CVA, ARF, Chemo, Hep., AIDS, mental health diagnosis, sleep apnea, morbid obesity)? @ -None Was patient admitted / discharged? Hospital course, mention meds given and route, prescriptions, significant lab abnormalities, going to OR and other pertinent info. @ -Based on the patient's presentation and physical exam, I'm concerned for possible dental abscess for the patient, however she is complaining primarily of throat pain. Cannot definitively rule out invasive abscess. She is concerned for swelling in her throat and therefore we will obtain CT soft tissue of the neck. She will receive a dose of steroids. No obvious peritonsillar abscess at this time. She will also be given a 1 L fluid bolus. Patient was in agreement this plan. Vital signs within acceptable limits. She is tolerating her oral secretions and is in no respiratory distress with no stridor. Patient's laboratory studies were all within acceptable limits. CT imaging reveals lymphadenopathy but no other acute findings. There was an over 4 hour delay in obtaining CT results due to a long delay from [facility]. Our radiologist, Dr. Fleming eventually read the studies. Discussed results with the patient. We will empirically place the patient on antibiotics. She was in agreement with this plan. Strict return precautions were discussed. Patient will be discharged home at this time. I will provide the patient with a prescription for Augmentin. I instructed the patient to follow up with their PCP in the next 1-3 days. I provided contact in formation for follow up with ENT. I explained that the patient should return to the emergency department if they experience any worsening symptoms. Strict return precautions were discussed with the patient. The patient expressed understanding of these instructions. I answered all questions that the patient had. The patient was discharged home in good condition with their prescriptions and follow up information. Undiagnosed new problem with uncertain prognosis? @ -No Drug Therapy requiring intensive monitoring for toxicity (Heparin, Nitro, Insulin, Cardizem)? @ -No Were any procedures done? @ -No Diagnosis/symptom? @ -Swollen lymph nodes, dental pain Acute, or Chronic, or Acute on Chronic? @ -Acute Uncomplicated (without systemic symptoms) or Complicated (systemic symptoms)? @ -Complicated Side effects of treatment? @ -none Exacerbation, Progression, or Severe Exacerbation] @ -no Poses a threat to life or bodily function? @ -no - Lab Data Result diagrams: 03/31/23 00:03 03/31/23 00:03 Lab Results 03/31/23 03/31/23 Range/Units 00:03 00:03 WBC 12.6 H (3.8-10.6) k/uL RBC 5.25 (3.80-5.40) m/uL Hgb 14.3 (11.4-16.0) gm/dL Hct 43.4 (34.0-46.0) % MCV 82.7 (80.0-100.0) fL MCH 27.3 (25.0-35.0) pg MCHC 33.0 (31.0-37.0) g/dL RDW 13.5 (11.5-15.5) % Plt Count 280 (150-450) k/uL MPV 7.0 Neutrophils % 75 % Lymphocytes % 19 % Monocytes % 3 % Eosinophils % 1 % Basophils % 0 % Neutrophils # 9.4 H (1.3-7.7) k/uL Lymphocytes # 2.4 (1.0-4.8) k/uL Monocytes # 0.4 (0-1.0) k/uL Eosinophils # 0.1 (0-0.7) k/uL Basophils # 0.0 (0-0.2) k/uL Sodium 140 (137-145) mmol/L Potassium 4.1 (3.5-5.1) mmol/L Chloride 103 (98-107) mmol/L Carbon Dioxide 23 (22-30) mmol/L Anion Gap 14 mmol/L BUN 6 L (7-17) mg/dL Creatinine 0.64 (0.52-1.04) mg/dL Est GFR (CKD-EPI)AfAm >90 (>60 ml/min/1.73 sqM) Est GFR (CKD-EPI)NonAf >90 (>60 ml/min/1.73 sqM) Glucose 90 (74-99) mg/dL Calcium 9.0 (8.4-10.2) mg/dL Disposition Clinical Impression: Swollen lymph nodes, Pain, dental Disposition: HOME SELF-CARE Condition: Good Prescriptions: Amoxic-Pot Clav 875-125Mg [Augmentin 875-125] 1 tab PO BID 7 Days #14 tab Is patient prescribed a controlled substance at d/c from ED?: No Referrals: Martha James, PAC [Primary Care Provider] - 1-2 days Leonides Gonzalez DO [Doctor of Osteopathic Medicine] - 1-2 days Time of Disposition: 04:30
[2023-03-31 00:32] LABS: Basophils % (A) 0 %; Eosinophils # (A) 0.1 k/uL (0-0.7); Eosinophils % (A) 1 %; HCT 43.4 % (34.0-46.0); HGB 14.3 gm/dL (11.4-16.0); Lymphocytes # (A) 2.4 k/uL (1.0-4.8); Lymphocytes % (A) 19 %; MCH 27.3 pg (25.0-35.0); MCV 82.7 fL (80.0-100.0); Monocytes # (A) 0.4 k/uL (0-1.0); Monocytes % (A) 3 %; Neutrophils # (A) 9.4 k/uL (1.3-7.7); Neutrophils % (A) 75 %; Platelet Count 280 k/uL (150-450); RBC 5.25 m/uL (3.80-5.40); RDW 13.5 % (11.5-15.5); WBC 12.6 k/uL (3.8-10.6)
[2023-03-31 03:33] VITALS: PULSE 79
[2023-03-31] MEDS ORDERED: AMOXIC-POT CLAV 875-125MG 1 EACH TAB PO STA (04:29)
--- NOTE | 2023-03-31 04:40 | CT ---
EXAMINATION TYPE: CT soft tissue neck w con DATE OF EXAM: 03/31/2023 HISTORY: Throat/cheek swelling/eval for abscess/infection COMPARISON: NONE CT DLP: 369.1 mGycm. Automated Exposure Control for Dose Reduction was Utilized. TECHNIQUE: CT scan of the neck is performed with IV Contrast, patient injected with 100 ml mL of Iso karsten 300, axial images are obtained, coronal and sagittal reformatted images are reviewed. FINDINGS: Airway: Some tonsillar prominence of the adenoids in the posterior nasopharynx in the lingular tonsil s but the airway remains patent. Parotid/submandibular glands: No gross abnormality seen. Carotid/Vascular Structures: No significant abnormality. Osseous Structures: No significant abnormality. Other: No greater than 1 cm neck adenopathy. Nasal septum is deviated to left of midline. IMPRESSION: No significant abnormality is seen. Airway is patent. No significant focal inflammatory change or abscess.
[2023-03-31 05:06] VITALS: BP 119/87
== END 2023-03-31 05:05 | disposition home or self-care (01) ==
LOC: EC 23:33
DX: R59.9 Enlarged lymph nodes, unspecified (principal); K08.89 Other specified disorders of teeth and supporting structures; J45.909 Unspecified asthma, uncomplicated; F17.290 Nicotine dependence, other tobacco product, uncomplicated; F12.90 Cannabis use, unspecified, uncomplicated; Z79.51 Long term (current) use of inhaled steroids
CPT/HCPCS: 99284; 96374; 96361; 36415; 80048; 85025; 70491; J1100; Q9967